=== PATIENT | male | born 1980 | race Hispanic/Latino ===

== ENCOUNTER 2016-12-29 16:00 | Emergency (ER) | payer OTHER ==
[2016-12-29 16:26] VITALS: TEMP 98.5; O2SAT 95
--- NOTE | 2016-12-29 16:51 | ED.PDOC ---
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 Occurred: just prior to arrival Severity: moderate Pain Location: head Method of Injury: fall Improving Factors: nothing Worsening Factors: nothing Associated Symptoms (Fall): denies symptoms Allergies/Adverse Reactions: Allergies NO KNOWN ALLERGY Allergy (Verified 12/29/16 16:25) Review of Systems - Review of Systems Constitutional: States: no symptoms reported EENTM: States: no symptoms reported Respiratory: States: no symptoms reported Cardiology: States: no symptoms reported Gastrointestinal/Abdominal: States: no symptoms reported Genitourinary: States: no symptoms reported Musculoskeletal: States: no symptoms reported Skin: States: see HPI Neurological: States: no symptoms reported Past Medical History (General) - Patient Medical History Hx Asthma: No Surgical History: other - Vaccination History Hx Tetanus, Diphtheria Vaccination: No Hx Influenza Vaccination: No Hx Pneumococcal Vaccination: No - Social History Hx Tobacco Use: No Hx Alcohol Use: No Hx Substance Use: No Hx Substance Use Treatment: No Hx Depression: No Family Medical History - Family History Mother Family History: Unknown Physical Exam - Physical Exam General Appearance: Alert, No apparent distress Head Injury: other - laceration gaping forehead 3 cm. Eye Exam: bilateral normal ENT Exam: hearing grossly normal, no evidence of ENT injury, no dental injury Neck Exam: non-tender, full range of motion, normal inspection Cardiovascular/Respiratory: regular rate, rhythm, no M/R/G, normal peripheral pulses, normal breath sounds Gastrointestinal/Abdominal: normal bowel sounds, non tender, soft Back Exam: no CVA tenderness, no vertebral tenderness Extremity Exam: no evidence of injury, normal range of motion Neurologic: alert, oriented x 3 - [place] Coma Score Best Eye Response ([place]): (4) open spontaneously Best Verbal Response ([place]): (5) oriented Best Motor Response ([place]): (6) obeys commands [place] Total: 15 Progress - Progress Progress: 12/29/16 17:20 Vital Signs - 8 hr 12/29/16 16:10 Temperature 98.5 F Respiratory 18 Rate Blood Pressure 142/82 [Right Arm] O2 Sat by Pulse 95 Oximetry Procedures - Laceration/Wound Repair Head Wound Length (cm): 3 - FOREHEAD Wound's Depth, Shape: linear Wound Explored: clean Betadine Prep?: No - chlorhexidine Wound Repaired With: dermabond - reinforced with steri strips Departure - Departure Clinical Impression: Forehead laceration Qualifiers: Encounter type: initial encounter Qualified Code(s): S01.81XA - Laceration without foreign body of other part of head, initial encounter Time of Disposition: 17:23 Disposition: Discharge to Home or Self Care Condition: Good Departure Forms: ED Discharge - Pt. Copy, Patient Portal Self Enrollment Instructions: DI for Laceration Repair, DI for Laceration Repair With Dermabond Additional Instructions: REMOVAL OF STERI STRIPS IN 7 DAYS-01/05/2017 DIY-do it yourself;Return to emergency room as needed;Tylenol 500 mg. by mouth every 6 hours as needed for pain/headache
[2016-12-29] MEDS ORDERED: TETANUS,DIPHTHERIA,PERTUSSIS 1 EA SYG IM ONE (16:53)
[2016-12-29 17:31] VITALS: BP 133/79
== END 2016-12-29 17:35 | disposition home or self-care (01) ==
LOC: ER 16:00
DX: S01.81XA Laceration without foreign body of other part of head, initial encounter (principal); Z23 Encounter for immunization; W51.XXXA Accidental striking against or bumped into by another person, initial encounter; Y93.66 Activity, soccer; Y92.89 Other specified places as the place of occurrence of the external cause